=== PATIENT | male | born 2000 | race Caucasian/White ===

== ENCOUNTER 2021-08-22 15:04 | Emergency (ER) | payer OTHER ==
[~2021-08-22] VITALS: Ht 185.4 cm; Wt 81.6 kg
[2021-08-22 15:29] VITALS: BP 129/79
--- NOTE | 2021-08-22 15:35 | NUR ---
BIBS C/O got electricuted at work while pluging a printer, no loc. AMBULATORY, [id number], NOT I DISTRESS
--- NOTE | 2021-08-22 15:55 | NUR ---
Patient discharged to home in stable condition. Written and verbal after care instructions given. Patient verbalizes understanding of instruction.
== END 2021-08-22 16:00 | disposition home or self-care (01) ==
LOC: ER 15:04
DX: T75.4XXA Electrocution, initial encounter (principal); I10 Essential (primary) hypertension; J45.909 Unspecified asthma, uncomplicated; F41.9 Anxiety disorder, unspecified; W86.0XXA Exposure to domestic wiring and appliances, initial encounter; Y93.C9 Activity, other involving computer technology and electronic devices; Y92.89 Other specified places as the place of occurrence of the external cause; Y99.8 Other external cause status